=== PATIENT | female | born 1960 | race Caucasian/White ===

== ENCOUNTER → 2024-03-28 14:34 | Outpatient (REF) | payer OTHER, SELFPAY | LOC: RAD 14:34 | PROVIDERS: ATTENDING PHYSICIAN Family Medicine | DX: M25.559 Pain in unspecified hip (principal); M79.18 Myalgia, other site | CPT/HCPCS: 72110; 73502 ==

== ENCOUNTER 2024-09-28 01:44 | Observation (INO) | payer OTHER, SELFPAY ==
[2024-09-27] VITALS (9 sets, daily range): BP systolic 93–108; BP diastolic 65–81; BMI 24.8
--- NOTE | 2024-09-27 20:12 | ED.GENMED ---
History of Present Illness
General
Chief Complaint: Overdose Unintentional
Source: patient
Time Seen by Provider: 09/27/24 19:43
History of Present Illness
History of Present Illness:
63-year-old female brought to the emergency by ambulance after having a adverse reaction to smoking marijuana pen. Patient became agitated and was screaming and acting 'weird'. Patient was so restless that medics administered 1.25 mg of droperidol
to safely transport her. Patient arrives to the emergency room sedated but does arouse to voice.
Past History
Past History
ED Past Medical History: GERD, Psychiatric (Anxiety/depression) and Other (Kidney stones)
ED Past Surgical History: None
Social History
Tobacco: Non-smoker
Personal:
Living: alone
Employment: Not employed
Family History
Family History: Other (Noncontributory)
Phy Exam
Physical Exam
Physical Exam:
General: Sleeping but arousable
Vitals: unremarkable
Head: Atraumatic
Eyes: Pupils equal, EOMI
Throat: Airway intact, no exudates
Neck: Trachea midline
Lungs: Clear and equal b/l
Heart: Regular rate, no murmurs
Abd: Soft, Nontender, No pulsatile mass
Neuro: Moves all extremities equally on command
Skin: Warm, dry, no rash
Extremities: pulses equal b/l, no edema
Course
Orders/Labs/Results
Orders:
Orders
09/27/24 19:27
EKG [Electrocardiogram (*1)] Urgent
Reason for Study: Tachycardia
EKG- Treatment ONCE
09/27/24 22:24
Ipratropium/Albuterol Sulfate [Duoneb] 3 ml INH R NOW STA
CR Chest - 2 Views Urgent
Comment:
Reason For Exam: hypoxia, ? aspiration
09/28/24 01:00
Flush (0.9% Sodium Chloride) [Flush (Nss)] See Dose Instructions IV PER PROTOCOL
09/28/24 01:08
Admit/Transfer Patient As Directed
Co-Sign Provider:
Level of Care: Observation services
Assign to:: Medical/Surgical
Physician / Group: hospitalist
Diagnosis: overdose
PRN Pain Medication Management As Directed
May give lesser potent ordered pain med per pt: Yes
preference::
Protocol:: Medication orders for pain may be administered in a
manner that supports deferring to patient preference
when the pt is:
- Requesting an ordered lesser potent pain medication.
Least to most potent pain medications are defined
as: acetaminophen < NSAID < tramadol < opioids
(morphine, oxycodone, hydromorphone).
- Requesting a lesser dose of the same medication IF
ORDERED.
- Requesting a less intrusive route of administration
if both routes are prescribed by the provider (PO <
IV).
09/28/24 01:09
Code Status As Directed
Resuscitation Status: Full Code
09/28/24 01:17
Drug Screen, Urine [Urine Drug Abuse Screen] Routine
Urinalysis Reflex To Culture Routine
09/28/24 01:25
CBC/With Diff [Complete Blood Count/With Diff] Routine
Comprehensive Metabolic Panel Routine
Magnesium Routine
Abnormal Lab Results
09/28/24
01:25
WBC 11.2 H 10^3/uL
(4.8-10.8)
RBC 4.08 L 10^6/uL
(4.20-5.40)
Hct 36.9 L %
(37.0-47.0)
MCHC 32.8 L g/dL
(33.0-37.0)
Absolute Neuts (auto) 10.3 H 10^3/uL
(1.4-6.5)
Absolute Lymphs (auto) 0.4 L 10^3/uL
(1.2-3.4)
Neutrophils % 91.8 H %
(42.2-75.2)
Lymphocytes % 3.7 L %
(20.5-51.1)
09/28/24 01:25
Vital Signs
Initial and Last Documented VS:
Initial Vital Signs
Temp Pulse Resp BP Pulse Ox
98.5 F 106 18 99/67 95
09/27/24 19:03 09/27/24 19:03 09/27/24 19:03 09/27/24 19:03 09/27/24 19:03
Last Documented Vital Signs
Temp Pulse Resp BP Pulse Ox
98.5 F 81 14 99/58 94
09/27/24 19:03 09/27/24 22:45 09/27/24 22:30 09/28/24 01:00 09/28/24 01:00
MDM/Problems Addressed
Differential Diagnosis Includes:
Adverse reaction to synthetic marijuana, sedation from droperidol, aspiration pneumonitis, hypoxia from sedation
MDM/Problems Addressed:
Patient was apparently quite agitated when paramedics arrived to transfer her to the hospital. They gave her droperidol as a sedative but also an antiemetic. Patient arrived to the emergency room sleepy and has remained so. She was hypoxic and
has required oxygen. We have attempted to wean oxygen as she is more arousable now than when she arrived however she continues to require supplemental oxygen. Patient observed for several hours but will require hospitalization that she is not
stable for discharge
*Radiology
Radiology exam reviewed: preliminary read by ED provider (Acute abnormality noted on my review of the chest x-ray)
*Pulse Oximetry
Patient hypoxic: yes
Comment: 84 due to sedation
*EKG
Interpreted by ED Provider?: Yes
Interpretation: normal
Heart Rate: 94
Rate: normal
Rhythm: sinus
[place]: normal axis
Interval: normal interval
QRS Pattern: normal QRS
Ischemia: no ischemia
*[place] Interpretation
Rate: normal
Interpretation: normal
Heart Rate: 94
Rhythm: sinus
*Critical Care Note
Total Time (30-74mins, 75-104mins- exclusive of procedures): Not Applicable
ED Attending Note
-
Portions of this chart may have been created with voice recognition software.� Occasional wrong word or��sound alike� substitutions may have occurred due to the inherent limitations of voice recognition software.
Discharge Plan
Departure
Patient Disposition: Admit
Date of Disposition: 09/28/24
Time of Disposition: 00:27
Presentation/result/management discussed w/ accepting MD/DO: Hospitalist
Condition: Fair
Discharge Problem:
Synthetic cannabis-induced anxiety disorder, Hypoxia, Aspiration into lower respiratory tract
Prescriptions:
No Action
Viibryd
40 mg PO DAILY
omeprazole
40 mg PO DAILY
ketorolac 10 mg tablet
10 mg PO Q6H 5 Days Qty: 20 0RF
oxycodone-acetaminophen [Percocet] 5-325 mg Tablet
1 tab PO Q4HPRN PRN (Reason: pain) Qty: 12 0RF
ondansetron 4 mg tablet,disintegrating
4 mg PO QID PRN (Reason: nausea and vomiting) Qty: 20 0RF
cefixime 400 mg capsule
400 mg PO DAILY 7 Days Qty: 7 0RF
Referrals:
Rg Hodge DO [Family Provider] -
Interventions
Interventions:
*Risk Screen - Suicide Last Done: 09/27/24 19:03
*General Assessment Last Done: 09/27/24 19:03
*Neglect/Abuse Screening Last Done: 09/27/24 19:03
*ED COVID-19 Vaccine History Last Done: 09/27/24 19:03
ED- Cardiac Assessment Last Done: 09/27/24 19:44
ED- Neurological Assessment Last Done: 09/27/24 19:44
ED-Psychological Assessment Last Done: 09/27/24 19:44
ED- Pulmonary Assessment Last Done: 09/27/24 19:44
Discharge Date and Time
Print Language: EMIRATI
[2024-09-27] MEDS: DUONEB 3 ML INH (22:27)
[2024-09-28] VITALS: BP 100/64
--- NOTE | 2024-09-28 00:53 | HPS.HSE ---
Family Physician
-
Family Physician: Rg Hodge
Chief Complaint
-
Acute intoxication
History of Present Illness
This is 63-year-old female with past medical history significant for GERD, anxiety and depression, osteoporosis and nephrolithiasis presented to the emergency department after altered behavior and vomiting in the setting of use of new formulation of
THC.
Patient reports been in usual state of health up until this evening around 5 PM. She was with family members and tried vaping a formulation of THC called THCp. Patient reported that she took 3 puffs and then sat in her chair appearing more more
sleepy than usual. When aroused she appeared confused and repeating wards. She was not re-directable. There was no slurring of speech, facial droop, hemineglect or ataxia. She then had a very large projectile vomiting that was nonbloody and
nonbilious. They called 911 who gave a dose of droperidol and brought her to the emergency department.
Patient has vaped and used THC in the past on a semiregular basis. However the TCP apparently has several times the concentration of what she has tried in the past. No other ingestions. She is otherwise a non-smoker and does not drink alcohol.
She has no known history of asthma or COPD.
While in the emergency department she was found to be hypoxic and placed on oxygen. She is still sleepy and still requires some oxygen so she was referred for observation.
Blood pressure was 100/64 pulse of 81 respiratory rate 14 with a temp of 98.5. She was satting 95% on 2 L. ECG showed a normal sinus rhythm at a rate of 94 with a prolongation of QTc to 492. Chest x-ray shows no acute infiltrates.
Medical History
Past Medical History
Past Medical History: Reports GERD and Psychiatric (Depression and anxiety,)
Additional Past Medical History:
Osteoporosis
Nephrolithiasis
Past Surgical History: Reports None
Social History
Tobacco: Non-smoker
Alcohol: None
Drug: Marijuana
Personal:
Living: With Family
Family History
Family History: Not pertinent
Allergies / Home Medications
Allergies reflects when Allergies were last updated in [employer]
Home Medications with original date entered in [employer]
Allergy/Medication List:
Allergies
Allergy/AdvReac Type Severity Reaction Status Date / Time
No Known Allergies Allergy Verified 09/27/24 19:07
Home Medications
Viibryd 40 mg PO DAILY 12/28/22
omeprazole 40 mg PO DAILY 12/28/22
Review of Systems
-
History Source: Patient and Family
Constitutional: Reports No Symptoms
EENT: Reports No Symptoms
Respiratory: Reports No Symptoms
Cardiac: Reports No Symptoms
Abdomen/GI: Reports Vomiting
: Reports No Symptoms
Musculoskeletal: Reports No Symptoms
Skin: Reports No Symptoms
Neurological: Reports No Symptoms
Endocrine: Reports No Symptoms
Hematologic/Lymphatic: Reports No Symptoms
Psych: Reports No Symptoms
Physical Exam
Vital Signs
Vital Signs
Temp Pulse Resp BP Pulse Ox
98.5 F 81 14 100/64 95
09/27/24 19:03 09/27/24 22:45 09/27/24 22:30 09/28/24 00:00 09/28/24 00:18
Physical Exam
General: Well Developed, Well Nourished, No Apparent Distress and Comfortable
HEENT: NormoCephalic, Anicteric, Moist mucous membranes, Atraumatic, PERRLA and Oxygen
Respiratory: Clear and Crackles (left basal crackles)
Cardiac: S1/S2 and Regular Rhythm
Breast: Deferred by me
GI: Soft, Non Tender, Non Distended and Normal Bowel Sounds
Rectal: Deferred by Provider
Genito-urinary: Deferred by me
Musculoskeletal: No Clubbing, No Cyanosis and No Edema
Skin: Warm
Neuro: Awake (somnolent but arousable), Oriented (oriented x 3), No Motor Deficits, Cranial Nerves Intact and No Sensory Deficits
Hematologic/Lymphatic: No Lymphadenopathy
Psych: Calm
Data Reviewed
-
Diagnostic Radiology: Report Reviewed by me
Medical Tests (Nuc Med, Echo, EKG etc): Image Personally Visualized and interpreted
Old Records: Reviewed
Impression/Plan
-
IMPRESSION:
63 y.o female with likely acute intoxication with THC, vomiting and likely aspiration pneumonitis made somnolent after droperidol given for vomiting. Still sleepy after a few hours in ED 5 hours, hemodynamically stable and arousable and following
simple commands. She has a 2 L O2 requirement, saturating 88 on RA and 95 - 98 on 2 L at rest. Lungs with few left basal crackles and no wheezing or dullness. Respiratory rate 12 - 14. Chest Xray is clear. Suspect possible aspiration w/o
pneumonia. No spontaneous coughing but sounds congested when asked to cough.
PLAN:
1.Hypoxia - 2/2 intoxication with THC and possible aspiration. RR, breath sounds are mostly normal.
- admit to med/surg observation
- avoid sedatives
- continous O2 and capnographic measures
- gentle hydration overnight
- labs/vbg in am
- unlikely co-ingestion but will get urine tox
DVT PPX - SCDs
Code status - full code
[2024-09-28 01:00] VITALS: BP 99/58
[2024-09-28 01:33] LABS: % Basophils 0.2 % (0-2); % Immature Granulocytes 0.3 % (0-0.5); % Lymphocytes 3.7 % (20.5-51.1); % Neutrophils 91.8 % (42.2-75.2); Absolute Lymphocytes 0.4 10^3/uL (1.2-3.4); Absolute Monocytes 0.5 10^3/uL (0.1-0.6); Absolute Neutrophils 10.3 10^3/uL (1.4-6.5); Hematocrit 36.9 % (37.0-47.0); Hemoglobin 12.1 g/dL (12.0-16.0); Mean Corp Hgb Conc. 32.8 g/dL (33.0-37.0); Mean Corpuscular Hgb 29.7 pg (27.0-31.0); Mean Corpuscular Volume 90.4 fL (81.0-99.0); Mean Platelet Volume 10.2 fL (7.4-10.4); Nucleated Red Blood Cells % 0 %; Platelet Count 235 10^3/uL (130-400); Red Blood Cell Count 4.08 10^6/uL (4.20-5.40); Red Cell Dist. Width 13.7 % (11.5-14.5); White Blood Cell Count 11.2 10^3/uL (4.8-10.8)
[2024-09-28 01:58] LABS: ALT (SGPT) 22 U/L (0-35); AST (SGOT) 30 U/L (14-36); Albumin 4.2 g/dl (3.5-5.0); Alkaline Phosphatase 50 U/L (38-126); Blood Urea Nitrogen 32 mg/dl (7-17); Calcium 9.1 mg/dl (8.4-10.2); Carbon Dioxide 25 mmol/L (22-30); Chloride 109 mmol/L (98-107); Estimated Creatinine Clearance 76 ml/min; Glucose 137 mg/dl (70-99); Potassium 4.4 mmol/L (3.5-5.1); Sodium 143 mmol/L (135-145); Total Bilirubin 0.5 mg/dl (0.2-1.3); Total Protein 6.8 g/dl (6.3-8.2); eGFR > 60.00
[2024-09-28] MEDS: D5LR 1000 IV (02:05)
[2024-09-28] MEDS: TYLENOL 650 MG PO (02:25)
[2024-09-28] MEDS: DUONEB 3 ML INH ×2 (08:06→11:44)
--- NOTE | 2024-09-28 10:19 | CM ---
CM reviewed chart. Patient is here for hypoxia that is s/t intoxication with THC and possible aspiration. Patient lives in home with . No JODI. She is independent. Owns no DME. Drives. 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 She denies any +SDOHs.
She has an active PCP and pharmacy.
ANTICIPATED DISCHARGE PLAN: Discharge to home with , when medically cleared.
--- NOTE | 2024-09-28 11:15 | PTCARENOTE ---
Pt more alert but still drowsy. Encouraged to eat some of her breakfast which is untouched. Oxygen taken off and maintaining SPO2 in low 93%.
[2024-09-28 12:12] VITALS: BP 90/51
--- NOTE | 2024-09-28 13:07 | W.DCSUMMARY ---
Discharge Summary
Discharge Data
Date of Admission: 09/28/24
Date of Discharge: 09/28/24
-
Pending Results: No
Hospital Course
Discharge diagnosis:
Marijuana/tetrahydrocannabinol overdose
Hypersomnolence
Transient mild hypoxia
Nausea/vomiting
CXR: No acute cardiopulmonary process.
Hospital course:
63-year-old female with past medical history significant for GERD, anxiety and depression, osteoporosis and nephrolithiasis who presented to the emergency department after altered behavior and vomiting in the setting of use of new formulation of THC.
Patient reports been in usual state of health up until this evening around 5 PM. She was with family members and tried vaping a formulation of THC called THCp. Patient reported that she took 3 puffs and then sat in her chair appearing more more
sleepy than usual. When aroused she appeared confused and repeating words. She was not re-directable. There was no slurring of speech, facial droop, hemineglect or ataxia. She then had a very large projectile vomiting that was nonbloody and
nonbilious. They called 911 who gave a dose of droperidol and brought her to the emergency department.
Patient has vaped and used THC in the past on a semiregular basis. However this THC apparently has several times the concentration of what she has tried in the past. No other ingestions. She is otherwise a non-smoker and does not drink alcohol.
She has no known history of asthma or COPD.
While in the emergency department she was found to be hypoxic and placed on oxygen. She was hypersomnolent, and placed in observation status.
By the following day, her hypoxia resolved. She was more awake. Her hypersomnolence improved. Her nausea and vomiting improved. She felt better, and wished to be discharged home. She is medically stable for discharge. She needs to follow-up
with her primary care doctor in 1 week.
Disposition: Home self-care
Discharge planning: Required 39 minutes
Discharge Plan
-
Patient Disposition: Home (Routine Discharge)
Discharge Diagnosis/Procedures: THC overdose, vomiting, mild hypoxia
Condition: Fair
Diet: Regular
Activity: As tolerated
Driving Restrictions: No driving for 1 week
Activity Restrictions/Additional Instructions:
Please rest, drink plenty of fluids.
Follow-up with your primary care doctor in 1 week.
Referrals:
Rg Hodge DO [Family Provider] -
Prescriptions:
New
ondansetron 4 mg tablet,disintegrating
4 mg PO Q6H PRN (Reason: nausea and vomiting) Qty: 10 0RF
Continued
omeprazole 40 mg Capsule,Delayed Release(Dr/Ec)
40 mg PO DAILY
vilazodone 40 mg Tablet
40 mg PO DAILY
Rx Instructions:
take with 20mg tab for total of 60mg
alendronate 70 mg Tablet
70 mg PO MO
therapeutic multivitamin Tablet
1 tab PO DAILY
loratadine [Claritin] 10 mg Tablet
10 mg PO DAILY
naproxen 500 mg Tablet
500 mg PO BIDPRN PRN (Reason: moderate pain)
cholecalciferol (vitamin D3) [Vitamin D3] 25 mcg (1,000 unit) Tablet
25 mcg PO DAILY
Visbiome 112.5 billion cell Capsule
1 cap PO DAILY
diclofenac sodium 1 % Gel
2 g TOPICAL DAILYPRN PRN (Reason: hip)
vilazodone 20 mg Tablet
20 mg PO DAILY
Rx Instructions:
take with 40mg tab for total of 60mg
lutein 40 mg Capsule
40 mg PO DAILY
Discharge Orders:
Discharge Patient (As Directed); Ordered 09/28/24
Ordered By: Gus Fernandez
Discharge Date and Time
Discharge Date/Time: 09/28/24 13:46
Print Language: DANISH
[2024-09-28] MEDS: ZOFRAN ODT (ORALLY DISINTEGRATING) 4 MG PO (13:41)
== END 2024-09-28 13:46 | disposition home or self-care (01) ==
LOC: ED 01:44
PROVIDERS: ADMITTING PHYSICIAN Internal Medicine; ATTENDING PHYSICIAN Family Medicine; EMERGENCY PHYSICIAN Emergency Medicine; FAMILY PHYSICIAN Family Medicine
DX: T40.721A Poisoning by synthetic cannabinoids, accidental (unintentional), initial encounter (principal); U07.0 Vaping-related disorder; Y92.9 Unspecified place or not applicable; F12.980 Cannabis use, unspecified with anxiety disorder; R45.1 Restlessness and agitation; F41.9 Anxiety disorder, unspecified; F32.A Depression, unspecified; K21.9 Gastro-esophageal reflux disease without esophagitis; R00.0 Tachycardia, unspecified; R09.02 Hypoxemia; M81.0 Age-related osteoporosis without current pathological fracture; R11.2 Nausea with vomiting, unspecified; R40.4 Transient alteration of awareness; R11.12 Projectile vomiting; F12.929 Cannabis use, unspecified with intoxication, unspecified; G47.10 Hypersomnia, unspecified; Z87.442 Personal history of urinary calculi
CPT/HCPCS: 71046; 80053; 83735; 85025; 93005; 94640; 99285; G0378

== ENCOUNTER 2024-12-16 12:15 | Emergency (ER) | payer OTHER, SELFPAY ==
[2024-12-16 12:24] VITALS: BP 135/94
[2024-12-16 12:30] LABS: Glucose - Point of Care 98 mg/dl (70-99)
[2024-12-16 12:49] LABS: % Basophils 0.5 % (0-2); % Eosinophils 1.1 % (0-6); % Immature Granulocytes 0.2 % (0-0.5); % Lymphocytes 23.8 % (20.5-51.1); % Neutrophils 67.4 % (42.2-75.2); Absolute Eosinophils 0.1 10^3/uL (0-0.7); Absolute Lymphocytes 1.9 10^3/uL (1.2-3.4); Absolute Monocytes 0.6 10^3/uL (0.1-0.6); Absolute Neutrophils 5.5 10^3/uL (1.4-6.5); Hematocrit 39.9 % (37.0-47.0); Hemoglobin 13.1 g/dL (12.0-16.0); Mean Corp Hgb Conc. 32.8 g/dL (33.0-37.0); Mean Corpuscular Hgb 29.6 pg (27.0-31.0); Mean Corpuscular Volume 90.3 fL (81.0-99.0); Mean Platelet Volume 10.2 fL (7.4-10.4); Nucleated Red Blood Cells % 0 %; Platelet Count 291 10^3/uL (130-400); Red Blood Cell Count 4.42 10^6/uL (4.20-5.40); Red Cell Dist. Width 13.4 % (11.5-14.5); White Blood Cell Count 8.2 10^3/uL (4.8-10.8)
[2024-12-16 13:04] LABS: ALT (SGPT) 19 U/L (0-35); AST (SGOT) 23 U/L (14-36); Albumin 4.1 g/dl (3.5-5.0); Alkaline Phosphatase 89 U/L (38-126); Blood Urea Nitrogen 16 mg/dl (7-17); Calcium 10.2 mg/dl (8.4-10.2); Carbon Dioxide 28 mmol/L (22-30); Chloride 108 mmol/L (98-107); Glucose 106 mg/dl (70-99); Potassium 4.1 mmol/L (3.5-5.1); Sodium 143 mmol/L (135-145); Total Bilirubin 0.5 mg/dl (0.2-1.3); eGFR > 60.00
--- NOTE | 2024-12-16 14:17 | ED.GENMED ---
History of Present Illness
General
Chief Complaint: Dizziness
Source: patient
Exam Limitations: none
Time Seen by Provider: 12/16/24 13:52
Nursing documentation reviewed up to this point in time: agreed with
History of Present Illness
History of Present Illness:
Patient with history of depression and reflux disease, presents to ED after waking up this morning at 5 AM with double vision, right-sided tongue numbness sensation, and unsteady gait. Double vision described as 1 object stacked on top another,
resolved when covering 1 eye. Denies headache. Denies dizziness. Denies weakness. Denies difficulty with speech or swallowing. Denies recent illness. Denies trauma. Denies previous history of similar symptoms.
Past History
Past History
ED Past Medical History: GERD, Psychiatric (Anxiety/depression) and Other (Kidney stones)
ED Past Surgical History: None
Social History
Tobacco: Non-smoker
Personal:
Living: alone
Employment: Not employed
Family History
Family History: Other (Noncontributory)
Review of Systems
Review of Systems
Allergies reviewed?: Yes
All Other Systems: ROS reviewed and negative except as documented in HPI and ROS
Constitutional: Reports no symptoms; Denies fever
Respiratory: Reports no symptoms
Cardiac: Reports no symptoms
ABD/GI: Reports no symptoms
Musculoskeletal: Reports no symptoms
Skin: Reports no symptoms
Neurological: Reports no symptoms
Phy Exam
Physical Exam
Physical Exam:
Physical Exam
General: no apparent distress, not acutely ill. afebrile
Head: nc/at. eomi
Neck: supple. normal range of motion.
Heart: s1/s2 regular rate and rhythm, no murmur.
Lungs: no acute respiratory distress. clear bilaterally
Abdomen: normal bowel sounds. not tender.
Neuro: alert and oriented x 3. no focal neurological deficits. normal speech. normal heel to gao testing
Skin: no rash
Psychiatric: well kept. interactive and cooperative
Extremities: no edema. no calf tenderness.
Course
Orders/Labs/Results
Orders:
Orders
12/16/24 12:28
CT Head W/o Iv Contrast Urgent
Comment:
Reason For Exam: visual changes
12/16/24 12:30
Electrocardiogram (*1) Urgent
Reason for Study: Vertigo / Dizzy
EKG- Treatment ONCE
12/16/24 12:31
Complete Blood Count/With Diff Urgent
Comprehensive Metabolic Panel Urgent
12/16/24 15:14
MR Brain Without Contrast Urgent
Comment:
Reason For Exam: double vision, tongue numbness
Recent pill cam endoscopy?: No
12/16/24 17:43
MethylPREDNISolone PF [Solu-Medrol Pf] 250 mg IV NOW STA
12/16/24 17:55
Pyridostigmine [Mestinon] 60 mg PO NOW STA
12/16/24 18:10
Acetylcholine Receptor Bind Ab [S] Routine
Comment: may add to blood in lab or draw as routine
Abnormal Lab Results
12/16/24
12:31
MCHC 32.8 L g/dL
(33.0-37.0)
Chloride 108 H mmol/L
(98-107)
Glucose 106 H mg/dl
(70-99)
12/16/24 12:31
12/16/24 12:31
Vital Signs
Initial and Last Documented VS:
Initial Vital Signs
Temp Pulse Resp BP Pulse Ox
98.5 F 82 16 135/94 98
12/16/24 12:24 12/16/24 12:24 12/16/24 12:24 12/16/24 12:24 12/16/24 12:24
Last Documented Vital Signs
Temp Pulse Resp BP Pulse Ox
98.2 F 71 16 128/73 95
12/16/24 20:00 12/16/24 20:00 12/16/24 20:00 12/16/24 20:00 12/16/24 20:01
MDM/Problems Addressed
MDM/Problems Addressed:
CT head report reviewed and discussed with patient as well as on-call neurology, . Afterwards, patient evaluated at bedside by Dr. Flanagan who recommended MRI brain without contrast be obtained.
MRI brain report reviewed with patient and .
With consideration for possible myasthenia gravis, patient provided with medications, as ordered by Dr. Flanagan, to provoke symptoms. After treatment, Dr. Flanagan does not feel the patient symptoms are consistent with myasthenia gravis. However, in light of
nonspecific symptoms, recommends treating patient empirically with prednisone 50 mg daily x 5 days, along with close PCP follow-up as an outpatient.
Patient expressed understanding at time of discharge, to the care of her family. Eyepatch provided prior to discharge.
*EKG
Interpreted by ED Provider?: Yes
EKG Intrepretation Date: 12/16/24
Heart Rate: 74
Rate: normal
Rhythm: sinus
[place]: normal axis
Interval: normal interval
*Critical Care Note
Total Time (30-74mins, 75-104mins- exclusive of procedures): Not Applicable
ED Attending Note
-
Portions of this chart may have been created with voice recognition software.� Occasional wrong word or��sound alike� substitutions may have occurred due to the inherent limitations of voice recognition software.
Discharge Plan
Departure
Patient Disposition: Home (Routine Discharge)
Date of Disposition: 12/16/24
Time of Disposition: 19:43
Patient with high blood pressure during this ER visit?: Yes
Condition: Fair
Discharge Problem:
Double vision
Instructions: Double Vision (DC)
Prescriptions:
New
prednisone 50 mg Tablet
50 mg PO DAILY Qty: 5 0RF
No Action
omeprazole 40 mg Capsule,Delayed Release(Dr/Ec)
40 mg PO DAILY
vilazodone 40 mg Tablet
40 mg PO DAILY
Rx Instructions:
take with 20mg tab for total of 60mg
alendronate 70 mg Tablet
70 mg PO MO
therapeutic multivitamin Tablet
1 tab PO DAILY
loratadine [Claritin] 10 mg Tablet
10 mg PO DAILY
naproxen 500 mg Tablet
500 mg PO BIDPRN PRN (Reason: moderate pain)
cholecalciferol (vitamin D3) [Vitamin D3] 25 mcg (1,000 unit) Tablet
25 mcg PO DAILY
Visbiome 112.5 billion cell Capsule
1 cap PO DAILY
diclofenac sodium 1 % Gel
2 g TOPICAL DAILYPRN PRN (Reason: hip)
vilazodone 20 mg Tablet
20 mg PO DAILY
Rx Instructions:
take with 40mg tab for total of 60mg
lutein 40 mg Capsule
40 mg PO DAILY
ondansetron 4 mg tablet,disintegrating
4 mg PO Q6H PRN (Reason: nausea and vomiting) Qty: 10 0RF
Referrals:
Rg Hodge, DO [Family Provider] -
Activity Restrictions/Additional Instructions:
As discussed, please follow-up with your primary care physician for further evaluation and treatment. Your prescription has been sent electronically to [facility] pharmacy in [place].
Interventions
Interventions:
*Risk Screen - Suicide Last Done: 12/16/24 12:26
*General Assessment Last Done: 12/16/24 18:39
*Neglect/Abuse Screening Last Done: 12/16/24 12:26
*ED- Fall Risk Assessment Last Done: 12/16/24 17:42
*ED COVID-19 Vaccine History Last Done: 12/16/24 17:42
*Nursing Disposition Last Done: 12/16/24 20:00
ED- Neurological Assessment Last Done: 12/16/24 17:41
ED Swallowing Screen Last Done: 12/16/24 18:15
Discharge Date and Time
Print Language: KHMER
--- NOTE | 2024-12-16 15:08 | CON.NEURO ---
Neuro Assessment/Plan
Assessment
right 'medical' CN 3 palsy (ptosis, normal pupil)
with right tongue numbness (CN 5 and 7) unable to localize a single lesion
no long tract sign to suspect a brainstem stroke
Brain MRI without contrast was normal
?myasthenia gravis as possible mimic
Plan
check acetylcholine receptor antibody,
trial of mestinon 60, Solumedrol 250
prednisone 50 x5 days
eye patch PRN.
If this is a CN3 palsy, the findings are relatively subtle and should resolve on its own.
Consultation
Order
Date of Consultation: 12/16/24
Requesting Provider: Alphonse Nixon
Reason for Consult: double vision
Subjective/Objective
Subjective Data
Date of Service: December 16, 2024
64 year old woman, went to sleep last night asymptomatic; woke up this morning 5am with double vision, numbness on the right side of her tongue, generalized weakness, ataxia, throat numbness. The weakness, ataxia, and tongue numbness have resolved;
she now only has vertical diplopia and throat numbness.
Objective Data
Vital Signs
Temp Pulse Resp BP Pulse Ox
36.9 C 82 16 135/94 98
12/16/24 12:24 12/16/24 12:24 12/16/24 12:24 12/16/24 12:24 12/16/24 12:24
Lab Results
12/16/24 12:31
12/16/24 12:31
Sodium 143 mmol/L (135-145) 12/16/24 12:31
Potassium 4.1 mmol/L (3.5-5.1) 12/16/24 12:31
BUN 16 mg/dl (7-17) 12/16/24 12:31
Glucose 106 mg/dl (70-99) H 12/16/24 12:31
Calcium 10.2 mg/dl (8.4-10.2) 12/16/24 12:31
Patient Allergies
No Known Allergies Allergy (Verified 09/27/24 19:07)
Physical Exam
-
AAOx3, speech clear, language intact
VFF, right 'medical' CN3 palsy with trace decrease in eye movement, slight ptosis ?improved after ice pack
the double vision resolves with right gaze
face symmetric, tongue/uvula/palate midline
full strength b/l UE/LE, normal bulk/tone
sensation intact temp/vib
DTR 1+ symmetric
Medications
-
Home Medications
�Medication �Instructions �Recorded
omeprazole 40 mg capsule,delayed 40 mg PO DAILY 12/28/22
release
vilazodone 40 mg tablet 40 mg PO DAILY 12/28/22
Lactobac no.2-Bifidobac no.1-S. 1 cap PO DAILY 09/28/24
thermo 112.5 billion cell capsule
(Visbiome)
alendronate 70 mg tablet 70 mg PO MO 09/28/24
cholecalciferol (vitamin D3) 25 25 mcg PO DAILY 09/28/24
mcg (1,000 unit) tablet (Vitamin
D3)
diclofenac sodium 1 % topical gel 2 g topical DAILYPRN PRN hip 09/28/24
loratadine 10 mg tablet (Claritin) 10 mg PO DAILY 09/28/24
lutein 40 mg capsule 40 mg PO DAILY 09/28/24
naproxen 500 mg tablet 500 mg PO BIDPRN PRN moderate pain 09/28/24
ondansetron 4 mg disintegrating 4 mg PO Q6H PRN nausea and 09/28/24
tablet vomiting #10 tabs
therapeutic multivitamin 1 tab PO DAILY 09/28/24
vilazodone 20 mg tablet 20 mg PO DAILY 09/28/24
[2024-12-16 17:39] VITALS: BP 129/84
[2024-12-16 18:00] VITALS: BP 146/87
[2024-12-16] MEDS: MESTINON 60 MG PO (18:05)
[2024-12-16] MEDS: SOLU-MEDROL PF 250 MG IV (18:06)
[2024-12-16 19:00] VITALS: BP 139/73
[2024-12-16 20:00] VITALS: BP 128/73
== END 2024-12-16 20:15 | disposition home or self-care (01) ==
LOC: EMR 12:15
PROVIDERS: Emergency Medicine; EMERGENCY PHYSICIAN Emergency Medicine; FAMILY PHYSICIAN Family Medicine; OTHER PHYSICIAN Psychiatry & Neurology Clinical Neurophysiology
DX: H53.2 Diplopia (principal); F32.A Depression, unspecified; K21.9 Gastro-esophageal reflux disease without esophagitis; R03.0 Elevated blood-pressure reading, without diagnosis of hypertension
CPT/HCPCS: 99285; 96374; 70450; 70551; 80053; 82962; 85025; 86041; 93005

== ENCOUNTER → 2024-12-31 06:48 | Outpatient (REF) | payer OTHER, SELFPAY | LOC: RAD 06:48 | PROVIDERS: ATTENDING PHYSICIAN Family Medicine | DX: I63.81 Other cerebral infarction due to occlusion or stenosis of small artery (principal) | CPT/HCPCS: 93880 ==

== ENCOUNTER → 2025-03-04 09:44 | Outpatient (REF) | payer OTHER, SELFPAY | LOC: HWRCS 09:44 | PROVIDERS: ATTENDING PHYSICIAN Internal Medicine Cardiovascular Disease; FAMILY PHYSICIAN Family Medicine | DX: Z86.73 Personal history of transient ischemic attack (TIA), and cerebral infarction without residual deficits (principal); R42 Dizziness and giddiness; E78.00 Pure hypercholesterolemia, unspecified; R03.0 Elevated blood-pressure reading, without diagnosis of hypertension | CPT/HCPCS: 93306 ==

== ENCOUNTER → 2025-03-30 08:15 | Outpatient (REF) | payer OTHER, SELFPAY | LOC: PAVMRI 08:15 | PROVIDERS: ATTENDING PHYSICIAN Specialist; FAMILY PHYSICIAN Family Medicine | DX: H53.2 Diplopia (principal); G45.9 Transient cerebral ischemic attack, unspecified | CPT/HCPCS: 70544 ==

== ENCOUNTER → 2025-05-11 08:54 | Outpatient (REF) | payer OTHER, SELFPAY | LOC: RAD 08:54 | PROVIDERS: ATTENDING PHYSICIAN Nurse Practitioner Family; FAMILY PHYSICIAN Family Medicine | DX: E34.9 Endocrine disorder, unspecified (principal) | CPT/HCPCS: 76536; 78071; A9500 ==

== ENCOUNTER 2025-07-07 06:18 | Day surgery (SDC) | payer OTHER, SELFPAY ==
[2025-06-23 09:26] LABS: Hematocrit 42.1 % (37.0-47.0); Hemoglobin 13.5 g/dL (12.0-16.0); Mean Corp Hgb Conc. 32.1 g/dL (33.0-37.0); Mean Corpuscular Volume 90.7 fL (81.0-99.0); Platelet Count 303 10^3/uL (130-400); Red Cell Dist. Width 13.3 % (11.5-14.5)
[2025-06-23 09:31] LABS: INR 0.90; PT 12.5 Sec (11.4-14.6)
[2025-06-23 09:32] LABS: APTT 27.8 Sec (23.4-35.0)
[2025-06-23 09:37] LABS: ALT (SGPT) 35 U/L (0-35); AST (SGOT) 33 U/L (14-36); Albumin 4.9 g/dl (3.5-5.0); Alkaline Phosphatase 90 U/L (38-126); Blood Urea Nitrogen 24 mg/dl (7-17); Calcium 11.2 mg/dl (8.4-10.2); Carbon Dioxide 28 mmol/L (22-30); Chloride 110 mmol/L (98-107); Glucose 108 mg/dl (70-99); Potassium 5.0 mmol/L (3.5-5.1); Sodium 146 mmol/L (135-145); Total Protein 7.7 g/dl (6.3-8.2); eGFR > 60.00
[2025-06-23 14:06] VITALS: BMI 29.5
[2025-07-07] VITALS (8 sets, daily range): BP systolic 113–143; BP diastolic 61–89; BMI 29.5
[2025-07-07] MEDS: NORMOSOL-R/PLASMALYTE-A 1000 IV (11:41)
[2025-07-07] MEDS: NEURONTIN 300 MG PO (11:41)
[2025-07-07] MEDS: TYLENOL 1000 MG PO (11:41)
[2025-07-07] MEDS: HEPARIN 5000 UNITS SC (14:44)
[2025-07-07 16:08] LABS: Turbo PTH 352.7 pg/ml (13.6-85.8)
--- NOTE | 2025-07-07 16:38 | OR.RPT ---
Operative Report
Operative Report
Date of Operation: July 07, 2025
Preoperative Diagnosis: Hyperparathyroidism - E210
Postoperative Diagnosis: Same
Surgeon: Alin Hightower M.D.
Operation: Neck exploration, resection of right inferior and left superior parathyroid adenomas - 12285
Anesthesia: GET
Estimated Blood Loss: 3 cc
Drains: None
Specimen: Right Inferior neck nodule and left upper neck nodules, rule out parathyroid adenomas
Complications: None
Procedure:
The patient was taken to the operating room and placed in the usual supine position. After adequate general endotracheal anesthesia was established, the patient's neck was extended, prepped, and draped in the typical sterile fashion. A 4 cm
transcervical incision was made two fingerbreadths above the sternal notch. The skin incision was made with the #15 blade, and this was taken through the skin into the subcutaneous tissue. The underlying platysma muscle was divided, and subplatysmal
flaps were created superiorly to the thyroid cartilage and inferiorly to the sternal notch. Strap muscles were identified and at the midline.
Attention was turned to the patient's right side of the neck. The right thyroid lobe was mobilized medially. During this process, the right recurrent laryngeal nerve was identified and preserved throughout the surgery. The right lower neck nodule
was identified and noted to be enlarged, excised, and sent to the pathology department, which showed a hypercellular parathyroid gland. Her intraoperative PTH failed to normalize.
Therefore, the neck was explored. The attention was turned to the left side of the neck. The left thyroid lobe was mobilized medially. During this process, the left recurrent laryngeal nerve was identified and preserved throughout the surgery. The
left upper neck nodule was identified and noted to be enlarged, excised, and sent to the pathology department, which showed a hypercellular parathyroid gland. The normal-appearing left lower parathyroid gland was identified and preserved. The right
inferior parathyroid gland normalized. The intraoperative PTH levels normalized.
After obtaining adequate hemostasis, the strap muscles were reapproximated with #3-0 Vicryl in a running fashion. The platysma muscle was reapproximated with #3-0 Vicryl in an interrupted fashion, and the skin was approximated with #4-0 Monocryl in
a running subcuticular fashion. The Steri-Strips and sterile dressings were placed. The patient tolerated the procedure well. The final instrument, needle, and sponge counts were correct. The patient was extubated and transferred to the PACU.
[2025-07-07 16:53] LABS: Turbo PTH 130.3 pg/ml (13.6-85.8)
[2025-07-07 17:55] LABS: Turbo PTH 32.8 pg/ml (13.6-85.8)
== END 2025-07-07 12:35 | disposition home or self-care (01) ==
LOC: SDS 06:18
PROVIDERS: ATTENDING PHYSICIAN Surgery; FAMILY PHYSICIAN Family Medicine
DX: E21.0 Primary hyperparathyroidism (principal); D35.1 Benign neoplasm of parathyroid gland
CPT/HCPCS: 60500; 36415; 80053; 83970; 85027; 85610; 85730; 88305; 88331; 93005